=== PATIENT | male | born 1955 | race Caucasian/White ===

== ENCOUNTER 2020-08-29 07:46 | Emergency (ER) | payer OTHER, MEDICARE ==
[~2020-08-29] VITALS: Ht 175.3 cm; Wt 79.4 kg
[~2020-08-29 07:46] MED LIST: CITA20 PO; LISHYD1012 PO; MIRT30 PO; TEMA30 PO; TRAM50 PO; TRAZ100 PO
[2020-08-29 08:44] LABS: Source, Urine Catheter
[2020-08-29 08:47] LABS: Bilirubin, Urine Neg (Neg); Blood, Urine Neg (Neg); Glucose Qualitative, Urine Neg (Neg); Ketones, Urine Neg (Neg); Leukocyte Esterase, Urine Neg (Neg); Nitrite, Urine Neg (Neg); Protein, Urine Neg (Neg); Urobilinogen, Urine NORM (Normal); pH, Urine 6.5 (5.0-8.0)
[2020-08-29 08:52] LABS: Appearance, Urine Clear (Clear); Color, Urine Yellow (P-Yellow)
[2020-08-29] MEDS ORDERED: Colace100 MG PO (09:06)
[2020-08-29] MEDS ORDERED: Flomax0.4 MG PO (09:06)
== END 2020-08-29 10:23 | disposition home or self-care (01) ==
LOC: ER 07:46
PROVIDERS: Physician Assistant
DX: R33.9 Retention of urine, unspecified (principal); K59.00 Constipation, unspecified; I10 Essential (primary) hypertension; Z79.899 Other long term (current) drug therapy; Z87.891 Personal history of nicotine dependence
CPT/HCPCS: 51702; 51798; 81003; 99283; A9270

== ENCOUNTER 2020-08-29 11:13 | Emergency (ER) | payer OTHER, MEDICARE ==
[~2020-08-29] VITALS: Ht 172.7 cm; Wt 81.7 kg
[~2020-08-29 11:13] MED LIST changes: +Colace100 MG PO; +Flomax0.4 MG PO
== END 2020-08-29 11:46 | disposition home or self-care (01) ==
LOC: ER 11:13
DX: T83.091A Other mechanical complication of indwelling urethral catheter, initial encounter (principal); R33.9 Retention of urine, unspecified; I10 Essential (primary) hypertension; Z79.899 Other long term (current) drug therapy; Z87.891 Personal history of nicotine dependence
CPT/HCPCS: 99283